=== PATIENT | female | born 1975 | race Caucasian/White ===

== ENCOUNTER 2020-06-22 06:38 | Emergency (ER) | payer BC, SELFPAY ==
[2020-06-22 06:39] VITALS: BP 158/87; PULSE 78; RESP 18; TEMP 36.6; O2SAT 98; BMI 47.3
--- NOTE | 2020-06-22 06:49 | MRI_ITS ---
STUDY: MRI CERVICAL SPINE WITHOUT CONTRAST REASON FOR EXAM: Female, 44 years old. L arm pain x 1 week TECHNIQUE: Standardized fat and water weighted pulse sequences were obtained in the sagittal and axial planes. COMPARISON: None FINDINGS: Cervical straightening. No significant scoliosis. Craniocervical and atlantoaxial articulations intact. Odontoid intact. No abnormal cord signal. Vascular flow voids maintained. No acute fracture, dislocation or osseous destruction. Normal foramen magnum and brainstem-cervical cord junction. Normal craniovertebral junction. Normal anterior atlantoaxial articulation. Normal odontoid process. C2-3: Normal endplates. Normal disc height, signal and morphology. Normal central canal and intervertebral neural foramina. C3-4: Normal endplates. Normal disc height, signal and morphology. Normal central canal and intervertebral neural foramina. C4-5: Normal endplates. Shallow disc bulge. Normal central canal and intervertebral neural foramina. C5-6: Mild endplate spondylosis. Disc herniation/osteophyte complex, asymmetric to the left with foraminal protrusion, with mild central canal narrowing. Severe left neural foraminal narrowing. Moderate left neural foraminal narrowing. C6-7: Mild endplate spondylosis. Disc herniation/osteophyte complex, asymmetric to the right, with mild central canal narrowing. Severe bilateral neural foraminal narrowing. C7-T1: Normal endplates. Normal disc height, signal and morphology. Normal central canal and intervertebral neural foramina. MRI/Spine Cervical (Routine) IMPRESSION: No abnormal cord signal Disc herniation/osteophyte complexes with central canal narrowing at C5-6 and C6-7 Severe neural foraminal narrowing at C5-6 and C6-7 Cervical straightening with osseous degenerative changes predominating at C5-6 and C6-7 Electronically Signed: Jamshid Singer DO at 9:54 EST Tel , Service support ,
--- NOTE | 2020-06-22 06:49 | EKG12_ITS ---
Test Reason : ARM PAIN Blood Pressure : / mmHG Vent. Rate : 066 BPM Atrial Rate : 066 BPM P-R Int : 148 ms QRS Dur : 102 ms QT Int : 430 ms P-R-T Axes : 052 025 035 degrees QTc Int : 450 ms Normal sinus rhythm Normal ECG Confirmed by LAURA THOMAS, MANA ([id number]), editorial assistant MARCIA JIMENEZ ([id number]) on 06/25/2020 1:40:12 PM Referred By: JHON Confirmed By:MANA SANCHEZ MD
--- NOTE | 2020-06-22 06:49 | RAD_ITS ---
HISTORY: LEFT ARM/NECK PAIN X 1 WK, PAIN GETTING WORSE ADDITIONAL HISTORY: None provided. EXAMINATION/TECHNIQUE: XR Chest 1 View AP/PA Number of images including paperwork: 1 COMPARISON: None FINDINGS: LUNGS AND PLEURA: No consolidation, mass or pleural effusion. CARDIAC SILHOUETTE: Unremarkable. MEDIASTINUM AND JANICE: Unremarkable. UPPER ABDOMEN: Unremarkable. SKELETON AND SOFT TISSUES: No acute skeletal findings. Degenerative changes. OTHER DEVICES AND HARDWARE: None. RAD/Chest 1 View (Portable) IMPRESSION: No acute cardiopulmonary abnormality. at 0745 Reported and signed by: Cinthia Linder MD Electronically Signed: Cinthia Linder MD at 7:44 EST Tel , Service support ,
--- NOTE | 2020-06-22 06:51 | ED.VISSUMM ---
- ER Visit Summary Date of Service: 06/22/20 Chief Complaint: [Severe left arm pain] History of Present Illness: The patient is a 44 F [presents to the emergency department with severe pain in her left arm since yesterday. Patient states that initially she started with pain in her neck about a week ago. She denies any trauma to her neck. The pain seems to have moved to the left shoulder and arm and radiates down to her elbow. Patient states that yesterday her fingers were numb. Patient denies any weakness to the extremity but has to keep her arm abducted at the shoulder to help relieve some of the discomfort. She states the pain is sharp and stabbing and severe. Patient has not had pain like this before. She does have history of prior back surgery to her lumbar region and has rods in her back.] Physical Examination: [HEENT-PERRLA, EOMI. Cranial nerves II through XII grossly intact. TMs clear. Mucous membranes moist. No adenopathy. No C-spine tenderness on palpation. Cardiovascular-regular rate and rhythm without murmur or ectopy Lungs-clear to auscultation, chest wall stable without crepitus or subcu emphysema Abdomen-normoactive bowel sounds, soft, nontender, no rebound or rigidity, no peritoneal signs. Extremities-intact ?4, normal range of motion, normal pulses, atraumatic. Left arm-patient has pain when she abducts the arm at the shoulder. There is no edema of the arm. She got normal pulses. 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 Deep tendon reflexes are plus 2 out of 4 bilaterally at the bicep, tricep, and brachioradialis.] Test Results: [EKG obtained on arrival shows sinus rhythm with a ventricular rate of 66 bpm with no acute segment changes] Emergency Department Course and Treatment: [Line established. Patient was medicated with Dilaudid and Zofran.] Treatment Plan: [Will be turned over to morning physician awaiting MRI results and lab results and final disposition] Disposition: [Pending] Impression: [Left arm pain/radiculopathy] This note was generated with [employer] software. It may contain incorrect words, spelling, and punctuation that were not noted in review of the chart prior to signing
[2020-06-22 07:02] LABS: Basophil% 0.4 % (0-1); Eosinophils% 1.8 % (0-5); Hematocrit 42.2 % (37-47); Hemoglobin 13.5 g/dL (12.0-15.0); Mean Corpuscular Hgb 29.2 pg (27.0-32.0); Mean Corpuscular Volume 91.3 fL (81-99); Mean Platelet Vol. 10.6 fl (6.2-12.0); Neutrophil # 5.07 X10^3/uL (2.7-7.7); Neutrophil % 65.3 % (47-70); Platelet Count 201 K/mm3 (150-450); RBC Distribution Width CV 13.9 % (11.6-14.6); RBC Distribution Width SD 46.8 fl (35.1-43.9); Red Blood Count 4.62 M/mm3 (4.2-5.4); White Blood Count 7.8 K/mm3 (4.4-11.0)
[2020-06-22 07:03] LABS: Absolute Lymphocyte Count 1.94 X10^3/uL (0.83-4.51); Absolute Neutrophil Count 5.1 X10^3/uL (2.0-7.7); Basophil# 0.03 X10^3/uL; Eosinophil# 0.14 X10^3/uL; Lymphocyte # 1.94 X10^3/ul (4.0); Monocyte# 0.54 X10^3/uL; NRBC Flagged by Analyzer 0 % (0-5)
[2020-06-22 07:23] LABS: Anion Gap 5 (5-15); BUN 15 mg/dL (7-18); BUN/Creat Ratio 17.7 RATIO (10-20); Chloride 106 mmol/L (98-107); Creatinine, Serum 0.85 mg/dL (0.55-1.02); EST Glomerular Filtration Rate 76 mL/min (>60); Est Glom Filt Rate - Afr Amer 93 mL/min (>60); Estimated Creatinine Clearance 89.43 ml/min; Glucose 95 mg/dL (74-106); Potassium 3.9 mmol/L (3.5-5.1); Sodium Level 139 mmol/L (136-145)
[2020-06-22] MEDS: Ondansetron 4 MG/2 ML Vial IV (08:02)
[2020-06-22] MEDS: HYDROmorphone 1 MG/ML Syringe IV ×2 (08:02→10:28)
[2020-06-22 08:48] VITALS: BP 115/78; PULSE 60; RESP 16; O2SAT 99
[2020-06-22 10:27] VITALS: BP 130/72; PULSE 63; RESP 16; O2SAT 95
--- NOTE | 2020-06-22 12:30 | ED.DEP ---
ED Disposition - Plan for ED Patient: Instructions: ED Radiculopathy, Cervical Prescriptions: MethylPREDNISolone DosePak [Medrol DosePak] 4 mg PO UD #1 box Oxycodone HCl/Acetaminophen [Percocet 5/325] 1 tablet PO Q6H PRN PRN 5 Days #20 tablet PRN Reason: Pain Score 1-10 Referrals: Kwabena Whitt DO [STAFF PHYSICIAN] - Dejan Son DO [STAFF PHYSICIAN] -
[2020-06-22] MEDS: dexAMETHasone 4 MG/ML Vial 8 MG IV (12:53)
== END 2020-06-22 12:54 | disposition home or self-care (01) ==
PROVIDERS: Emergency Provider Emergency Medicine
DX: M79.602 Pain in left arm (principal); M54.10 Radiculopathy, site unspecified; Z72.0 Tobacco use
CPT/HCPCS: 71045; 72141; 80048; 84484; 85025; 93005; 96374; 96375; 96376; 99283; J7030; A4216; J2405

== ENCOUNTER 2020-07-02 20:03 | Observation (INO) | payer BC, SELFPAY ==
[2020-06-24 13:48] VITALS: BMI 47.3
--- NOTE | 2020-06-26 13:09 | EKG12_ITS ---
Test Reason : PRE SURGERY Blood Pressure : / mmHG Vent. Rate : 068 BPM Atrial Rate : 068 BPM P-R Int : 164 ms QRS Dur : 116 ms QT Int : 418 ms P-R-T Axes : 071 066 040 degrees QTc Int : 444 ms Normal sinus rhythm Normal ECG When compared with ECG of 22-JUN-2020 06:43, No significant change was found Confirmed by ADELA THOMAS, SANTOSH ([id number]), technical writer and editor AUBRIE ESCOBAR ([id number]) on 06/29/2020 10:33:38 AM Referred By: Dejan Son Confirmed By:SANTOSH CHAPMAN MD
[2020-06-26 13:57] LABS: Absolute Lymphocyte Count 3.37 X10^3/uL (0.83-4.51); Absolute Neutrophil Count 9.6 X10^3/uL (2.0-7.7); Basophil# 0.06 X10^3/uL; Basophil% 0.4 % (0-1); Eosinophil# 0.08 X10^3/uL; Eosinophils% 0.6 % (0-5); Hematocrit 45.1 % (37-47); Hemoglobin 14.1 g/dL (12.0-15.0); Lymphocyte # 3.37 X10^3/ul (4.0); Lymphocyte % 24.4 % (19-41); Mean Corp Hgb Conc 31.3 g/dL (32-36); Mean Corpuscular Hgb 28.3 pg (27.0-32.0); Mean Corpuscular Volume 90.4 fL (81-99); Mean Platelet Vol. 10.5 fl (6.2-12.0); Monocyte% 4.3 % (0-10); NRBC Flagged by Analyzer 0 % (0-5); Neutrophil # 9.61 X10^3/uL (2.7-7.7); Neutrophil % 69.6 % (47-70); Platelet Count 247 K/mm3 (150-450); RBC Distribution Width CV 13.7 % (11.6-14.6); RBC Distribution Width SD 45.7 fl (35.1-43.9); Red Blood Count 4.99 M/mm3 (4.2-5.4); White Blood Count 13.8 K/mm3 (4.4-11.0)
[2020-06-26 14:11] LABS: Anion Gap 5 (5-15); BUN 19 mg/dL (7-18); BUN/Creat Ratio 19.7 RATIO (10-20); Calcium,Total 9.2 mg/dL (8.5-10.1); Chloride 102 mmol/L (98-107); Creatinine, Serum 0.97 mg/dL (0.55-1.02); EST Glomerular Filtration Rate 66 mL/min (>60); Est Glom Filt Rate - Afr Amer 80 mL/min (>60); Glucose 123 mg/dL (74-106); Potassium 3.3 mmol/L (3.5-5.1); Sodium Level 137 mmol/L (136-145)
[2020-06-26 14:42] LABS: HIV - WCH Non-Reactive (Nonreactive)
[2020-06-27 07:07] LABS: HEPATITIS B SURFACE AG Negative (Negative); Hepatitis A AB, Total Negative (Negative); Hepatitis A IgM Antibody Negative (Negative); Hepatitis B Core AB IgM Negative (Negative); Hepatitis B Core Ab Total Negative (Negative); Hepatitis C Ab <0.1 s/co ratio (0.0-0.9)
[2020-06-27 08:59] LABS: Hep B Surface Antibodies Non Reactive (.)
[2020-07-02] VITALS (11 sets, daily range): BP systolic 123–156; BP diastolic 57–89; PULSE 71–90; RESP 14–18; TEMP 36.3–36.8; O2SAT 94–100; BMI 50.5; BMI 47.3
--- NOTE | 2020-07-02 09:19 | HP_ITS ---
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 Dejan Son DO) household members: spouse, children, other details: brother housing: house Smoking Status: Current every day smoker tobacco type: cigarettes Tobacco: How many years used: 20 alcohol intake: never what type of physical activity do you participate in: none do you feel safe at home: Yes HPI Neck pain: Details: Parts of this documentation were recorded by a scribe, this documentation accurately reflects the service provided and the decisions made by me, Dr. Dejan Son DO 06/24/20 1345. KAMLA TIJERINA is a 44 year old F here today to establish as a new patient. Patient went to the [facility] ER on 06/22/2020. Patient states over the past week an a half d/t cervical pain. Pain has been radiating to her left arm. Patient had an EKG, chest x-ray, and a cervical spine MRI. Denies any previous accident or injury. Cervical pain is only on her left side. Patient did not see a chiropractor for her pain d/t h/o back surgery. Patient has been trying Aleve, ibuprofen 600mg, icey-hot, heating pad and elevating her left arm with multiple pillows that she has in the office with her today. States she cannot lower her left arm d/t extreme pain. Patient reports numbness and stiffness with her left arm and it effects her digits. Patient is currently taking Percocet and a steroid dose ricardo from the ER. Kamla dent a most pleasant lady whose chief complaint is that of pain in her neck that radiates down her left arm. This first started about 2 weeks ago basically with neck pain within 2 days it started going down her left arm. Is been severe ever since. She has never had anything like this in the past. She also gets posterior cervical cephalgia. It is never affected the right arm. Her pain was so severe she had to end up in the emergency room. They sent her home on Percocet 5 mg. On examination she has very positive Spurling's to the left side. She has weakness of the extensors of the wrist on the left as compared to the right. Her bit brachioradialis reflex on the left is completely absent it is 2+ on the right. She has no long tract signs. Clonus is absent Babinski's are downgoing. She has good strength of all the other major muscle groups of both upper extremities. I reviewed her plain x-rays and her MRI scan. She has an extruded fragment at C5-6 into the foramen on the left side. This is giving her the vast majority of her pain. She also has a protrusion out to the right side at 6 7 with some foraminal stenosis at both foramina however the main pain No Doubt is coming from above. She will need an anterior cervical fusion at C5-6 and C6-7. With the severe pain that she is having now and the neurological deficit she is not a candidate for physical therapy. Anti-inflammatories were of no use whatsoever. We will try to schedule her as soon as is reasonably possible. ROS Const Denies system reviewed and no additional complaints, except as docu, Denies chills, Denies fatigue, Denies fever(s), Denies frequent falls, Denies headache(s) ENT Denies headache(s) Card Denies system reviewed and no additional complaints, except as docu, Denies chest pain, Denies shortness of breath Resp Denies system reviewed and no additional complaints, except as docu, Denies chest congestion, Denies cough, Denies shortness of breath GI Denies system reviewed and no additional complaints, except as docu, Denies abdominal pain, Denies constipation, Denies incontinent of stools, Denies loose stools, Denies nausea, Denies vomiting Denies system reviewed and no additional complaints, except as docu, Denies urinary incontinence Musc Reports system reviewed and no additional complaints, except as docu, Reports joint pain, Reports numbness, Reports stiffness, Denies tingling Skin/Breast Denies system reviewed and no additional complaints, except as docu, Denies dry skin, Denies redness, Denies lesions, Denies new lesions, Denies non-healing lesions, Denies itching, Denies rash, Denies skin ulcer, Denies sores, Denies wounds Neuro No frequent falls, No headache(s), Yes numbness, No tingling Endo Denies fatigue Assessment & Plan 1. Neck pain M54.2 Orders Orders: Cerv Spine 2 or 3 Views Today 2. HNP (herniated nucleus pulposus), cervical M50.20 Coding Level of Care Code Off vis,new,level 3 Diagnoses Neck pain M54.2 HNP (herniated nucleus pulposus), cervical M50.20 Time Spent (min) 30
[2020-07-02] MEDS: Lactated Ringers 1,000 ML 100 ML IV ×3 (10:34→23:57)
[2020-07-02] MEDS: Acetaminophen 500 MG Tablet 1000 MG PO (10:35)
[2020-07-02] MEDS: dexAMETHasone 10 MG/ML Vial 8 MG IV (10:49)
[2020-07-02 10:51] LABS: Bedside Glucose 88 mg/dL (70-110)
--- NOTE | 2020-07-02 11:30 | RAD_ITS ---
STUDY: X-RAY - CERVICAL SPINE REASON FOR EXAM: Female, 44 years old. Anterior cervical discectomy at C5/C6 and C6/C7. TECHNIQUE: 2 intraoperative lateral views of the cervical spine were obtained. COMPARISON: 06/24/20 FINDINGS: Evaluation is limited as only a lateral view is provided and only up to C5/C6 is visualized. Alignment is grossly normal. There is no fracture identified. There are mild degenerative changes at C5/C6. There is an endotracheal tube in place. RAD/Spine 1 View Any Level IMPRESSION: As above. Electronically Signed: Ryan Mascorro MD at 13:46 EST Tel , Service support ,
--- NOTE | 2020-07-02 11:30 | DISC_PTH ---
PATIENT: HESHAM TIJERINA LOC: MS3 U#:[id number] AGE/SX: 44/F [place]OM: [facility] [place]/[address]: Dr. Rigo Merrill, : 1975 BED: 1 DIS: 07/03/2020 SPEC #: [id number] RECD: 07/03/20 07:41 STATUS: JOSE LUIS REQ #: [id number] JOSE: 07/02/20 11:[address]: Dejan Son DEPT: SURGICAL PATHOLOGY RECD BY: Yumiko Townsend ENTERED: 07/03/20 08:23 SP TYPE: DISC OTHR DR: MD Dr. Dejan Mata, DO Dr. Rigo Merrill, DO No Primary Care Phys Tissues: A - Intervertebral disc, NOS B - Intervertebral disc, NOS Procedures: Surgery Specimen Level III Comments: @ Ordering doctor for SUIII edited from to @ by PARIS at 07/03/20 1504 @ Submitting doctor edited from to @ by RGOOD at 07/03/20 1504 HEADER OPERATION: ERAS, anterior cervical fusion C5-C6 (left), C6-C7 PRE-OP DIAGNOSIS: Neck pain, herniated nucleus polposus, cervical TISSUE SUBMITTED: A - Disc C5-C6, B - Disc C6-C7 MICROSCOPIC DIAGNOSIS A. Disc C5-C6: Fragments of fibrocartilaginous tissue with degenerative and reactive changes and minute fragments of bone. B. Disc C6-C7: Fragments of fibrocartilaginous tissue with degenerative and reactive changes and minute fragments of bone. NAVID:[email or web address] 07/06/2020 MICROSCOPIC DESCRIPTION Slides are reviewed. GROSS DESCRIPTION A - Received in fixative is one container labeled with the patient's name and designated disc C5-C6. The specimen consists of multiple irregular fragments of sykes, indurated tissue that in aggregate measure 5 x 3 x 0.3 cm. The entire specimen is submitted in two cassettes. B - Received in fixative is one container labeled with the patient's name and designated disc C6-C7. The specimen consists of multiple irregular fragments of sykes, indurated tissue that in aggregate measure 3 x 2.5 x 0.3 cm. The entire specimen is submitted in one cassette. / Ricardo 07/03/20 TC:5 CPT: 96500 x2
[2020-07-02] MEDS: Thrombin 5,000 IU Kit (PSA) 5,000 IU Vial 5000 IU (13:34)
[2020-07-02] MEDS: Heparin 10,000 UNITS/10 ML Vial 10000 UNITS (13:34)
--- NOTE | 2020-07-02 14:10 | RAD_ITS ---
STUDY: X-RAY - LUMBAR SPINE REASON FOR EXAM: Female, 44 years old. ANTERIOR CERVICAL FUSION CONFIRMATION IMAGE FOR C5/6 TECHNIQUE: 1 view(s) of the lumbar spine were obtained. COMPARISON: None FINDINGS: The localization instrument is seen along the anterior aspect of the C5-C6 disc space level. RAD/Spine 1 View Any Level IMPRESSION: The localization instrument is seen along the anterior aspect of the C5-C6 disc space level. Electronically Signed: Jeff Crandall MD at 14:25 EST , Service support ,
--- NOTE | 2020-07-02 16:40 | RAD_ITS ---
STUDY: X-RAY - cervical REASON FOR EXAM: Female, 44 years old. image #3 IN OR TECHNIQUE: Lateral view(s) of the cervical spine were obtained. COMPARISON: None FINDINGS: Single intraoperative lateral view demonstrates postsurgical changes status post anterior cervical fusion at C5-6 and C6-7 with indwelling disc spacers.. Indwelling endotracheal and nasogastric tubes are seen. RAD/Spine 1 View Any Level IMPRESSION: Intraoperative anterior cervical fusion at C5-6 and C6-7 Electronically Signed: Kwabena Henning MD at 23:00 EST , Service support ,
--- NOTE | 2020-07-02 17:15 | PCM.OPRPT ---
Report of Operation Description of Surgical Findings:: Preoperative diagnosis: Disc degeneration C6-7 and herniated disc with hard disc disease C5-6 on the left Postoperative diagnosis: Same The procedure: #1 cervical fusion C6-7 #2 insertion of cage C6-7 #3 application of anterior spine plate between C5 and C7 #4 anterior cervical fusion C5-6 #5 version of cage at C5-6 and #6 bone marrow aspirate right iliac crest Surgeon: Dr. Son election assistant:Candido GAMING Anesthesia: General endotracheal anesthesia administered by [facility] Blood loss: Less than 30 cc Bone marrow aspirate: 60 cc Drains: 1/4 inch [place] Complications: None Patient was taken to the OR she was placed in the supine position on the operating table. She was then placed under general endotracheal anesthesia. The neuro monitoring community service technician then placed all the needle leads on the patient and a Figueredo catheter was inserted. Took a preoperative x-ray a marker in place and marked the skin point where incision was to begin. Marked with a very small laceration using the end of the needle in the midline of the neck. The neck and the right crest area was then prepped and draped in standard fashion. I then started the incision at the predetermined point in the middle and curving to the edge of the right sternocleidomastoid muscle in line with longer's lines. Subcutaneous tissues were incised length of skin incision using cautery. Used scissors to elevate that is undermined subcutaneous tissue above and below the incision. Retaining retractors were then put in place and I split the platysma near its medial border tissue scissors. Then exploited the fascial planes first exploiting the superficial cervical fascia and opening the pretracheal fascia strap muscles were retracted to the left along with the trachea and esophagus and the carotid sheath was retracted to the right. Fashion I was able to identify the precervical fascia and found 2 disks. I put a needle marker in place in the top of the 2 0 to x-ray I then did the x-ray and found that this was C5-6 this was marked with cautery but cut a hole in the center of the disc but then moved down 1 disc to C6-7 2 at first. Cauterized the longus coli muscles on either side along their medial border elevated them gently off the disc space on either side using a small omalley elevator. The leather belt loop cutter retractors were then put in place under the coli muscles on either side and also up-and-down to give me good access to C6-7. I then used the cautery unit to cauterize the anterior longitudinal ligament and periosteum above and below the disc space. Using a 15 blade I remove the anterior annulus and used pituitary rongeurs to remove more nucleus from within the disc space distractor on 1 side and then used curettes to remove the cartilage off both endplates. On the opposite side also. Following this I used a mirtha bur to bur on the right side till it was a thin shell of bone using curettes I then removed the thin shell off of the base of the see VII nerve root. Note that she had no symptoms of it however because of the foraminal stenosis it was causing it could become a problem in the future even with a fusion. I then removed all the remaining cartilage off both endplates I used a bur also to bur the anterior osteophytes and make them even. Thorough irrigation was carried out every 10 to 15 minutes in the course of the case took my measurements for the cage in a trial we found that a large 8 mm high titanium cage would be appropriate for this level. I then used the rasp and broaches to broach the space and roughen up both endplates. Give me good bleeding bone. Note that prior to this we used a Jamshidi needle to go into the right iliac crest we tamped into place and we were able to obtain 60 cc of bone marrow aspirate. This was handed off to the community service technician with the centrifuge who spun it down to bring the stem cells from the red cells the white cells and the plasma and concentrating the stem cells about 8 or 10 times. Then given back to me I then filled the 8 mm cage with spongy DBM and soaked it in the patient's own stem cells. This was then tamped into place and countersunk approximately 2 mm we then removed our retractors and moved up using Cloward retractors we identified C5-6 and then cauterized the coli muscles on either side and again the leather belt loop cutter retractors were put in their place give me good access at C5-6 I remove the anterior annulus with a 15 blade and removed more nucleus from within the disc with pituitary rongeurs we then used a bur to remove the anterior osteophytes. I then removed more nucleus from the disc base with a pituitary rongeurs and curettes all the way back to the back of the intervertebral space. Note that she had foraminal stenosis on the left and using the mirtha bur technique a use earlier on the other level by first burring followed by the instillation cold saline this was done repeatedly until the uncinate process causing the stenosis was a very thin shell of bone this was then removed off of the base of the nerve root using small angled curettes. That I also found a significant free fragment that was pressing on the nerve root which of course was giving her her severe pain in her left arm. This was easily removed when I was done there was a open foramen with no pressure on it whatsoever thorough irrigation was carried out repeatedly. I we then took her measurements for a second cage we found that we needed an 8 mm cage. Again it was a large of the 2 sizes and again we filled it with's spongy DBM and soaked it in the patient's own stem cells. Prior to put it in I used the broach to broach the space and have good bleeding bone on both endplates. This was then tamped into place and countersunk a couple of millimeters. Ended up using a 45 mm 6-hole plate we landed up with the 2 holes into C6 to into C5 and 2 into C7 once lined up with a use the awl to punch each of the individual holes and entered with 14 mm screws at all 6 points. Was seen on x-ray was found to be very satisfactory with good position of the cages the plate and screws. An amniotic membrane was then placed over the plate to prevent adhesions to the esophagus in the future. 1/4 inch Edith was then left in place. We closed the platysma running fashion with 5-0 Vicryl followed by closure of subcutaneous tissues with 5-0 Vicryl in interrupted fashion. This approximated the skin there was no need for outside stitches. Sterile dressings were applied a safety pin was placed through the drain to prevent a suction into the wound. She was then recovered in the OR to her hospital bed and taken to recovery in satisfactory condition this interoperative summary on Kamla Harris.
[2020-07-02] MEDS: dexAMETHasone 4 MG/ML Vial 2 MG IV ×2 (18:05→23:47)
--- NOTE | 2020-07-02 19:26 | PCM.CONS.GEN ---
Problem List (1) S/P cervical spinal fusion Status: Acute (2) Elevated BP without diagnosis of hypertension Status: Acute (3) Chronic back pain Status: Chronic Qualifiers: Back pain location: back pain in unspecified location Back pain laterality: unspecified Qualified Code(s): M54.9 - Dorsalgia, unspecified; G89.29 - Other chronic pain (4) Cervical neck pain with evidence of disc disease Status: Chronic (5) Cervical radiculopathy Status: Chronic (6) Morbid obesity Status: Chronic (7) Tobacco use Status: Chronic (8) NILES (obstructive sleep apnea) Status: Suspected Reason for Consult Date of Consultation: 07/02/20 Reason for Consultation: Medical management History of Present Illness: The patient is a 44 y/o F w/ PMHx: Tobacco use, Morbid Obesity, Suspected NILES per herself noting her notes she gasps in her sleep, Chronic back pain s/p prior lumbar surgery interventions with ongoing cervical neck pain with radiculopathy who presents to the [facility] on 07/02/20 for planned cervical fusion C6-7, insertion of cage C6-7 with application of anterior spine plate between C5 and C7 as well as anterior cervical fusion of C5-6 and version of cage at C5-6 as well as bone marrow aspirate to the right iliac crest with no specific perioperative complications. Neurosurgery has requested medical management consultation. Upon evaluation of patient she is returned to medical surgical floor and currently rating pain in her neck as dull aching and sharp at the same time with no radiculopathy with full sensation of bilateral upper extremities at 3 out of 10. 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 Allergies hydrocodone [From Vicodin] Adverse Reaction (Verified 07/02/20 10:20) Nausea Home Medications: Ambulatory Orders Medication Instructions Recorded MethylPREDNISolone DosePak [Medrol 4 mg PO UD #1 box 06/22/20 DosePak] Alprazolam [Xanax] 0.5 mg PO DAILY PRN PRN 06/26/20 Percocet 5-325 mg Tablet 5 - 325 mg PO Q4H PRN PRN 07/02/20 Surgical History: Surgical History (Last Updated 06/24/20 @ 13:54 by Zora Orellana) H/O lumbosacral spine surgery Z98.890 04/20/2007, 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 Tobacco Use: Cigarettes Alcohol: Occasional Drugs: None - *Family History Maternal History Items: Pulmonary Disease - Mother with a history of chronic COPD with underlying tobacco use history with unfortunately Covid illness recently. Paternal History Items: Heart Disease, Hypertension Review of Systems Constitutional: Reports: Malaise, Weakness, Fatigue. Denies: Anorexia, Chills, Fever, Weight Change HEENT: Reports: - - Cervical neck discomfort status post recent fusion.. Denies: Head Aches, Sinus Congestion, Sinus Drainage Cardiovascular: Denies: Chest Pain, Palpitations Respiratory: Denies: Cough, Shortness of breath at rest, Sputum production Gastrointestinal: Denies: Abdominal Pain, Nausea, Vomiting Genitourinary: Denies: Dysuria Musculoskeletal: Reports: Back Pain, Neck Pain. Denies: Joint Pain, Joint Tenderness Skin: Denies: Rash, Wounds Neurological: Reports: - - Patient with previously bilateral upper extremity paresthesias with radiculopathy.. Denies: Focal weakness, Numbness, Tingling Psychiatric: Denies: Anxiety, Depression, Homicidal Ideations, Suicidal Ideations Hematologic/ Lymphatic: Denies: Easy Bruising, Easy Bleeding Subjective: Patient seated upright in the medical surgical bed, cervical soft collar in place, rating pain 3 out of 10, full sensation of bilateral upper extremities. Objective: Physical Examination: General: awake, alert, oriented x 3 and cooperative, seated upright in the medical surgical bed, no acute distress, rating pain 3 of 10. Skin: normal color, turgor, no icterus, cyanosis except neck with cervical collar and dressings in place, no obvious evidence of drainage. HEENT: AT/NC, EOMI, PERRLA, dry MM, cervical collar in place therefore deferred assessment of carotid region or JVD. Lungs: Diminished breath sounds, greater bases, moderate effort, no rales, ronchi or wheezing. Heart: Regular rate and rhythm; no gallop, rub audible. Abdomen: soft, morbidly obese, NTTP, no obvious evidence of distention, distant normal BS, no HSM. Extremities: no cyanosis or clubbing, noted bilateral hand and bilateral ankle mild edema. Neurological: patient awake, alert, oriented as noted; cognitive function improving, near baseline intact; pupils equally reactive to light and accomodation; cranial nerves II-XII grossly normal, moving all 4 extremities although limited given recent cervical spinal fusion, sensation intact, strength accordingly severely global decrease. Psychiatric: affect appears mildly fatigued otherwise normal, no acute evidence of depressive or anxiety feelings. - Physical Exam Vitals/I&O's: Vital Signs Temp Pulse Resp BP Pulse Ox 97.4 F L 82 18 139/71 H 97 07/02/20 19:19 07/02/20 19:19 07/02/20 19:19 07/02/20 19:19 07/02/20 19:19 Oxygen Flow Rate (L/min) 6 Oxygen Delivery Method Venturi Mask Weight: 352 lb 4.779 oz Body Mass Index (BMI) 50.5 Intake and Output for Last 24 Hours 06/30/20 07/01/20 07/02/20 23:59 23:59 23:59 Intake Total 1215 / 1215 Output Total 775 / 775 Balance 440 / 440 Microbiology Past 72 Hours 07/01/20 12:15 Interface Orders SARS-CoV-2 Antigen (Rapid) - Final Laboratory Results 07/02/20 10:08: POC Glucose 88 Current Medications Dexamethasone Sodium Phosphate (Dexamethasone 4 Mg/Ml Vial) 4 mg IV Q6H RYAN; Taper Stop: 07/03/20 17:59 Last Admin: 07/02/20 18:05 Dose: 4 mg Documented by: Enteral Nutritional Formula (Ensure Surgery 237 Ml Liquid) 237 ml PO TIDCM RYAN Famotidine (Famotidine 20 Mg Tablet) 20 mg PO BID RYAN Lactated Ringer's () 1,000 mls @ 100 mls/hr IV .Q10H RYAN Last Infusion: 07/02/20 18:20 Dose: Infused Documented by: Lactated Ringer's () 1,000 mls @ 100 mls/hr IV .Q10H [facility] Last Admin: 07/02/20 17:10 Dose: 100 mls/hr Documented by: Cefazolin Sodium () 1 gm in 50 mls @ 100 mls/hr IV Q8H [facility] Stop: 07/03/20 04:59 Morphine Sulfate (Morphine 4 Mg/Ml Syringe) 2 - 4 mg IV Q2H PRN PRN PRN Reason: Pain Score 6-10 Morphine Sulfate (Morphine 2 Mg/Ml Syringe) 2 - 4 mg IV Q2H PRN PRN PRN Reason: Pain Score 6-10 Ondansetron HCl (Ondansetron 4 Mg/2 Ml Vial) 4 mg IV Q8H PRN PRN PRN Reason: NAUSEA Senna/Docusate Sodium (Senna/Docusate Sodium 1 Tablet) 2 tablet PO BID [facility] Sodium Chloride (0.9% Nacl Peripheral Flush Adult/Peds) 5 - 15 ml IV UD PRN PRN Reason: SALINE FLUSH Tramadol HCl (Tramadol 50 Mg Tablet) 50 - 100 mg PO Q6H PRN PRN PRN Reason: Pain Score 4-5 Zolpidem Tartrate (Zolpidem Tartrate 5 Mg Tablet) 5 mg PO QHS PRN PRN PRN Reason: INSOMNIA Assessment/Plan All Active Problems (Last Updated 06/24/20 @ 13:54 by Zora Orellana) S/P cervical spinal fusion (Acute) Elevated BP without diagnosis of hypertension (Acute) The patient is a 44 y/o F w/ PMHx: Tobacco use, Morbid Obesity, Suspected NILES per herself noting her notes she gasps in her sleep, Chronic back pain s/p prior lumbar surgery interventions with ongoing cervical neck pain with radiculopathy who presents to the [facility] on 07/02/20 for planned cervical fusion C6-7. 1. Intractable neck pain with generative disc disease and radiculopathy: Failed conservative therapies and treatments, admitted per Dr. Son for planned cervical fusion, post-operative pain management, bowel regimen, DVT Prophylaxis, PT/OT/CM per Orthopedic surgery discretion. 2. Elevated BP without hypertensive diagnosis: Possibly secondary to pain, will continue to closely monitor and if appropriate add oral regimen, and in interim will have IV as needed hydralazine. 3. Morbid Obesity: Weight loss and lifestyle changes encouraged, nutrition consulted. 4. Tobacco Abuse: Encouraged cessation, inpatient consultation per RT, NR if desired. 5. Suspected NILES: Patient notes that she does gasp in her sleep for air per report by her spouse, will maintain on continuous pulse oximetry and if appropriate patient should be referred upon discharge for sleep apnea assessment. 6. DVT prophylaxis: SCDs, chemoprophylaxis per discretion of surgeon given recent intervention. Office Visits / Consults: [id number] IP Consult L3
[2020-07-02] MEDS: traMADol 50 MG Tablet PO (20:04)
[2020-07-02] MEDS: Cefazolin 1 GM/50 ML BAG IV (20:06)
[2020-07-02] MEDS: Famotidine 20 MG Tablet PO (22:12)
[2020-07-02] MEDS: Senna/Docusate Sodium 1 Tablet 2 TABLET PO (22:12)
[2020-07-02] MEDS: 0.9% NaCl Peripheral Flush Adult/Peds IV (23:47)
[2020-07-02] MEDS: Morphine 2 MG/ML Syringe IV (23:48)
[2020-07-03] VITALS (8 sets, daily range): BP systolic 112–134; BP diastolic 56–64; PULSE 61–67; RESP 16–18; TEMP 36.4–37.2; O2SAT 93–100
[2020-07-03] MEDS: traMADol 50 MG Tablet PO ×3 (02:08→16:57)
[2020-07-03] MEDS: Cefazolin 1 GM/50 ML BAG IV (04:49)
[2020-07-03] MEDS: dexAMETHasone 4 MG/ML Vial 2 MG IV ×2 (04:57→11:46)
[2020-07-03] MEDS: Senna/Docusate Sodium 1 Tablet 2 TABLET PO (07:57)
[2020-07-03] MEDS: Ensure Surgery 237 ML LIQUID PO ×2 (07:57→11:46)
[2020-07-03] MEDS: Famotidine 20 MG Tablet PO (07:57)
[2020-07-03] MEDS: Morphine 2 MG/ML Syringe IV (10:33)
[2020-07-03] MEDS: 0.9% NaCl Peripheral Flush Adult/Peds IV (10:34)
--- NOTE | 2020-07-03 12:48 | PN_ITS ---
Patient Problems: Active and Suspected Problems (Last Updated 06/24/20 @ 13:54 by Zora Orellana) S/P cervical spinal fusion (Acute) NILES (obstructive sleep apnea) (Suspected) Elevated BP without diagnosis of hypertension (Acute) Subjective: Patient was seen and examined today, she has no complaints of any shortness of breath, chest discomfort, or headache at this time. Patient's blood pressure is well controlled. - Physical Exam Vitals/I&O's: Vital Signs Temp Pulse Resp BP Pulse Ox 97.5 F L 61 18 112/59 L 95 07/03/20 08:34 07/03/20 08:38 07/03/20 08:34 07/03/20 08:34 07/03/20 08:38 Oxygen Flow Rate (L/min) 2 Oxygen Delivery Method Room Air Weight: 149.685 kg Body Mass Index (BMI) 47.3 Intake and Output for Last 24 Hours 07/01/20 07/02/20 07/03/20 23:59 23:59 23:59 Intake Total 1943.33 / 2543.33 2450 / 2450 Output Total 775 / 2625 4850 / 4850 Balance 1168.33 / -81.67 -2400 / -2400 General: Alert, Oriented x3, Cooperative, No apparent distress, Well developed, Well nourished HEENT: Atraumatic, PERRLA, EOMI, Normocephalic Oral: Moist Mucosa Neck: - - Cervical collar in place Lungs: Clear to auscultation, Normal air movement, No rhonchi, No wheeze, No rales Cardiovascular: Regular rate, Regular Rhythm, Normal S1, Normal S2, No murmurs, PMI Normal, No rub noted, No Gallop Abdomen: Bowel Sounds Present, Soft, Non Tender, Non-Distended, Obese Extremities: No clubbing, No cyanosis, No edema, Capillary Refill Less than 3 Seconds Skin: No rashes, No breakdown Neurological: Cranial nerves II-XII grossly intact, Neuro grossly intact, Sensory exam intact to light touch and pain Psych/Mental Status: Normal Affect, Appropriate, Alert and oriented to time, place, person, mood and affect Microbiology Past 72 Hours 07/01/20 12:15 Interface Orders SARS-CoV-2 Antigen (Rapid) - Final Current Medications Dexamethasone Sodium Phosphate (Dexamethasone 4 Mg/Ml Vial) 2 mg IV Q6H [facility]; Ta per Stop: 07/03/20 17:59 Last Admin: 07/03/20 11:46 Dose: 2 mg Documented by: Enteral Nutritional Formula (Ensure Surgery 237 Ml Liquid) 237 ml PO TIDCM [facility] Last Admin: 07/03/20 11:46 Dose: 237 ml Documented by: Famotidine (Famotidine 20 Mg Tablet) 20 mg PO BID [facility] Last Admin: 07/03/20 07:57 Dose: 20 mg Documented by: Lactated Ringer's () 1,000 mls @ 100 mls/hr IV .Q10H [facility] Last Infusion: 07/03/20 10:21 Dose: Infused Documented by: Sodium Chloride () 250 mls @ 15 mls/hr IV .[id number] PRN PRN Reason: Saline Flush Sodium Chloride () 250 mls @ 15 mls/hr IV .[id number] PRN PRN Reason: Additional IVPB Infusion Morphine Sulfate (Morphine 4 Mg/Ml Syringe) 2 - 4 mg IV Q2H PRN PRN PRN Reason: Pain Score 6-10 Morphine Sulfate (Morphine 2 Mg/Ml Syringe) 2 - 4 mg IV Q2H PRN PRN PRN Reason: Pain Score 6-10 Last Admin: 07/03/20 10:33 Dose: 2 mg Documented by: Nicotine (Nicotine 21 Mg Patch) 21 mg TD DAILY [facility] Last Admin: 07/03/20 07:57 Dose: 21 mg Documented by: Ondansetron HCl (Ondansetron 4 Mg/2 Ml Vial) 4 mg IV Q8H PRN PRN PRN Reason: NAUSEA Senna/Docusate Sodium (Senna/Docusate Sodium 1 Tablet) 2 tablet PO BID [facility] Last Admin: 07/03/20 07:57 Dose: 2 tablet Documented by: Sodium Chloride (0.9% Nacl Peripheral Flush Adult/Peds) 5 - 15 ml IV UD PRN PRN Reason: SALINE FLUSH Last Admin: 07/03/20 10:34 Dose: 10 ml Documented by: Sodium Chloride (0.9% Saline Lock 10 Ml Syringe) 10 - 40 ml IV UD PRN PRN Reason: SALINE FLUSH Tramadol HCl (Tramadol 50 Mg Tablet) 50 - 100 mg PO Q6H PRN PRN PRN Reason: Pain Score 4-5 Last Admin: 07/03/20 08:02 Dose: 100 mg Documented by: Zolpidem Tartrate (Zolpidem Tartrate 5 Mg Tablet) 5 mg PO QHS PRN PRN PRN Reason: INSOMNIA Medical Necessity - Tobacco Use Smoking Status: Current every day smoker Tobacco Use: Cigarettes Assessment/Plan All Active Problems (Last Updated 06/24/20 @ 13:54 by Zora Orellana) S/P cervical spinal fusion (Acute) Elevated BP without diagnosis of hypertension (Acute) #1 degenerative disc disease of the cervical spine-status post cervical fusion and insertion of cage and application of spinal plate, with bone marrow aspirate right iliac crest-patient has no complaints of severe neck pain today, await physical exam by orthopedic surgery #2 morbid obesity #3 possible obstructive sleep apnea-patient has been advised to follow-up with her PCP regarding sleep testing, I recommended that she establish a PCP, her currently has 1 and I advised her to see if she could get into see her 's physician. She has requested materials concerning sleep apnea and she will be given these materials by nursing. Inpatient E&M: 71948 Subs Hosp L2
--- NOTE | 2020-07-03 13:23 | CASEMGMT ---
RN CM in to discuss dc planning with patient. Pt denies any needs at this time.
--- NOTE | 2020-07-03 14:44 | DCINST_ITS ---
Discharge Activity: May Not Drive May shower in (days): 4 May resume sexual activity in: 10-14 days Weight Bearing Status: Full weight bearing Call your doctor if your incision/area has: Continuous Slow Oozing, Increased Pain/ Swelling Call your doctor if you observe: Fever of 101 or Higher, Shortness of breath, Fainting spells, Calf discomfort Remove Dressing in (days):: 4 Cleanse incision/area with: Soap & Water Allergies/Adverse Reactions: Allergies hydrocodone [From Vicodin] Adverse Reaction (Verified 07/02/20 10:20) Nausea Medications to take at Discharge Alprazolam [Xanax] 0.5 mg PO DAILY PRN PRN 06/26/20 Nicotine [Nicoderm Cq] 21 mg TD DAILY patch 07/03/20 Primary Care Physician: Care Physician,No Primary [Primary Care Provider] - Test Results: Test results from this visit will be discussed in further detail at your follow- up appointment, if applicable. Please Follow Up With: Dr Son When: 10 to 14 days Proposed Discharge Date: 07/03/20
== END 2020-07-03 17:13 | disposition home or self-care (01) ==
LOC: SDC 20:11 → MS3 20:11
PROVIDERS: Anesthesiology; Admitting Provider Orthopaedic Surgery; Referring Provider Orthopaedic Surgery; Visit Provider Internal Medicine
PROC: (CPT 22551; principal; 2020-07-02 11:00)
DX: M50.222 Other cervical disc displacement at C5-C6 level (principal); Z20.828 Contact with and (suspected) exposure to other viral communicable diseases; M50.323 Other cervical disc degeneration at C6-C7 level; F17.210 Nicotine dependence, cigarettes, uncomplicated; F41.9 Anxiety disorder, unspecified; F32.9 Major depressive disorder, single episode, unspecified; G89.29 Other chronic pain; R03.0 Elevated blood-pressure reading, without diagnosis of hypertension; E66.01 Morbid (severe) obesity due to excess calories; G47.33 Obstructive sleep apnea (adult) (pediatric); Z68.42 Body mass index [BMI] 45.0-49.9, adult; Z79.899 Other long term (current) drug therapy
CPT/HCPCS: 20939; 22551; 22552; 22845; 22853; 36415; 72020; 80048; 82962; 83735; 85025; 86703; 86704; 86705; 86706; 86708; 86709; 86803; 87081; 87340; 87426; 88304; 93005; 99406; C1713; C9803; J7120; A4216; J2405

== ENCOUNTER → 2020-07-24 20:02 | Outpatient (CLI) | payer BC, SELFPAY ==
[2020-07-15 10:34] VITALS: BMI 47.3
== END ==
PROVIDERS: Referring Provider Nurse Practitioner Acute Care; Visit Provider Nurse Practitioner Acute Care
DX: G47.33 Obstructive sleep apnea (adult) (pediatric) (principal)
CPT/HCPCS: 95811

== ENCOUNTER → 2020-08-06 13:00 | Outpatient (CLI) | payer BC, SELFPAY ==
[2020-07-15 10:34] VITALS: BMI 47.3
== END ==
PROVIDERS: Visit Provider Nurse Practitioner Acute Care
DX: Z46.89 Encounter for fitting and adjustment of other specified devices (principal)

== ENCOUNTER 2023-06-09 06:23 | Emergency (ER) | payer BC, SELFPAY ==
[2023-06-09 06:23] VITALS: BP 162/89; PULSE 65; RESP 19; TEMP 36.3; O2SAT 98; BMI 55.5
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
[2023-06-09] MEDS: Ketorolac 60 MG/2 ML Vial IM (07:32)
[2023-06-09] MEDS: Metaxalone 800 MG Tablet PO (07:37)
--- NOTE | 2023-06-09 07:45 | RAD_ITS ---
STUDY: X-RAY - CERVICAL SPINE REASON FOR EXAM: Female, 47 years old. Pain and prior c-fusion TECHNIQUE: 3 view(s) of the cervical spine were obtained. COMPARISON: Comparison is made with prior study January 22, 2021. FINDINGS: Normal anterior atlantoaxial articulation. Normal odontoid process. There is straightening of the normal cervical lordosis. Normal vertebral bodies and endplates. Patient is status post anterior fusion and prosthetic disc placement at the C5-C6 and C6-C7 levels. Normal visualized intervertebral neuroforamina. Calcification of the left carotid bifurcation. RAD/Cerv Spine 2 or 3 Views IMPRESSION: Loss of the normal cervical lordosis. Status post anterior fusion and disc space replacement at the C5-C6 and C6-C7 levels. Electronically Signed: Jeff Crandall MD at 8:06 EST ,
--- OUTSIDE RECORDS SUMMARY | 2023-06-09 07:53 | XMS RPT_ITS | CCD ---
Author Name Unknown Address [address] [place] [address] Organization [facility] Care Team Providers Care Digital Tech Name Role Phone BASIA LOBO Unavailable Unavailable TERESA ROJAS Unavailable Unavailable SNEHA QUEZADA (MEKHI) Unavailable Unavaila CHUCK Nagy Unavailable Unavailable SNEHA QUEZADA (MEKHI) Unavailable Unavaila ble SNEHA QUEZADA (MEKHI) Unavailable Unavaila ble Problems Active Problems Problem Classification Problem Date Documented Date Episodic/Chronic Mood disorders (1 source) Mood disorders Onset: 12-03-2016 Osteoarthritis (1 source) Bilateral primary osteoarthritis of knee; Translations: [Bilateral primary osteoarthritis of knee] Onset: 03-21-2018 Chronic Residual codes; unclassified (1 source) Pain, unspecified; Translations: [Pain, unspecified] Onset: 03-21-2018 Unclassified (2 sources) Abrasion, right lower leg, initial encounter / S80.811A(ICD-9) Onset: 12-03-2016 Unclassified (1 source) Tobacco use / Z72.0(ICD-9) Onset: 12-03-2016 Past or Other Problems Problem Classification Problem Date Documented Da te Episodic/Chronic Unclassified (1 source) Abrasion, right lower leg, initial encounter; Translations: [Abrasion, right lower leg, initial encounter] Onset: 12-03-2016 Results Test Name Value Interpretation Reference Range Facil ity Encounters Encounter Date Encounter Type Care Provider Facility Start: 03-30-2018 End: 04-02-2018 Patient encounter procedure SNEHA PUGH) [facility] Start: 03-21-2018 End: 04-02-2018 [facility]: 12-03-2016 End: 12-03-2016 Emergency department patient visit BASIA LOBO Facility:[facility] Payers Date Payer Category Payer Policy ID Unknown [id number] Summary Purpose Family History No Family History Records FoundNo Family History Records Found Advance Directives No Advanced Directives Records FoundNo Advanced Directives Records Found Additional Source Comments INFORMATION SOURCE (unrecogn ized section and content) DATE CREATED AUTHOR AUTHOR'S CLARISSA LASHAYWILLOW 04/16/2018 [facility] FOR RECORDS PERTAINING TO PATIENTS WHO ARE OR HAVE BEEN ENROLLED IN A CHEMICAL DEPENDENCY/SUBSTANCEABUSE PROGRAM, SOME INFORMATION MAY BE OMITTED. This clinical summary was aggregated from multiple sources. Caution should be exercised in using it in the provision of clinical care. This summary normalizes information from multiple sources, and as a consequence, information in this document may materially change the coding, format and clinical context of patient data. In addition, data may be omitted in some cases. CLINICAL DECISIONS SHOULD BE BASED ON THE PRIMARY CLINICAL RECORDS. [facility]. provides no warranty or guarantee of the accuracy or completeness of information in this document.
[2023-06-09 08:23] VITALS: BP 160/80; PULSE 62; RESP 16; O2SAT 99
== END 2023-06-09 08:28 | disposition home or self-care (01) ==
PROVIDERS: Emergency Provider Emergency Medicine; Visit Provider Emergency Medicine
DX: S16.1XXA Strain of muscle, fascia and tendon at neck level, initial encounter (principal); M62.838 Other muscle spasm; F17.290 Nicotine dependence, other tobacco product, uncomplicated; X58.XXXA Exposure to other specified factors, initial encounter; Y93.89 Activity, other specified; Y92.89 Other specified places as the place of occurrence of the external cause
CPT/HCPCS: 72040; 96372; 99282

== ENCOUNTER 2024-04-08 20:10 | Emergency (ER) | payer BC, SELFPAY ==
[2024-04-08 20:11] VITALS: BP 175/139; PULSE 99; RESP 20; TEMP 36.5; O2SAT 93; BMI 55.5
--- NOTE | 2024-04-08 20:25 | EDS_ITS ---
HPI History of Present Illness HPI Narrative: Patient presents for left wrist injury occurred tonight. Patient states she fell 1 step off of the bleachers. Patient is right-hand dominant. Patient put her left hand out to catch her fall. Patient noted deformity immediately. Patient admits to some tingling into her fingers. Patient describes her pain as burning. Patient states nothing seems to help with the pain. Patient states her pain is worse with any movement. Patient denies any weakness. Patient denies any head injury or loss of consciousness. 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 Home Medications ?Medication ?Instructions ?Recorded ?Last Taken ?Type alprazolam 0.5 mg tablet 0.5 mg PO DAILY PRN PRN Anxiety 06/26/20 Unknown History fluoxetine 10 mg capsule (Prozac) 20 mg PO DAILY 12/23/20 Unknown History metaxalone 800 mg tablet 800 mg PO TID 7 days #21 tabs 06/09/23 Unknown Rx oxycodone-acetaminophen 5 mg-325 1 tab PO Q6H PRN PRN Pain 3 days 04/08/24 Unknown Rx mg tablet #12 TABLETS Allergy/AdvReac Type Severity Reaction Status Date / Time hydrocodone (From Vicodin) AdvReac Nausea Verified 04/08/24 20:17 Surgical History H/O neck surgery H/O lumbosacral spine surgery Social History household members: spouse, children and other details: brother housing: house Smoking Status: Current every day smoker tobacco type: e-cigarettes Tobacco: How many years used: 20 alcohol intake: never what type of physical activity do you participate in: none do you feel safe at home: Yes ROS ROS ED Constitutional Constitutional ED: Denies chills or fever(s) Eyes Eyes: Denies blurry vision or change in vision ENT ENT ED: Denies rhinorrhea or sore throat Cardiovascular Cardiovascular: Denies chest pain or palpitations Respiratory/Chest Respiratory/Chest: Denies cough or dyspnea Gastrointestinal Gastrointestinal: Denies nausea or vomiting Genitourinary Genitourinary ED: Denies dysuria or hematuria Musculoskeletal Musculoskeletal: Denies back pain or neck pain Integumentary Denies abscess or rash Neurologic Neurologic: Denies headache(s) or weakness Allergic/Immunologic Allergic/Immunologic ED: Denies mouth swelling or urticaria EXAM Physical Exam Const Vital Signs: 04/08/24 20:11 04/08/24 20:15 Temperature 97.7 F L Temperature Source Oral Pulse Rate 99 Respiratory Rate 20 H Blood Pressure 175/139 H Blood Pressure Mean 151 Pulse Ox 93 Oxygen Delivery Method Room Air Positive well nourished and well developed General Appearance ED: well developed and NAD HEENT Reports moist mucous membranes normocephalic Neck full ROM and supple Extremity Extremity Narrative: There is an obvious deformity of the left distal forearm and wrist. Range of motion was limited in all motions of the left wrist secondary to pain. Sensation was intact to light touch in the radial, median, and ulnar areas. Strength is 5/5 in the radial, median, and ulnar areas. Radial pulses are equal bilaterally. Neuro oriented x3, CN's II-XII intact bilaterally, moves all extremities, no focal motor deficits and no sensory deficits noted Sensorium / Orientation: alert Motor Exam: strength 5/5 throughout MDM MDM MDM Narrative Medical decision making narrative: Differential diagnosis includes fracture and dislocation. X-rays of the left wrist and left forearm will be obtained to assess for fracture or dislocation. Radiography Diagnostic Testing: X-rays of the left wrist were obtained. There are 3 views. On my independent interpretation, there there is a comminuted fracture of the distal radius with dorsal angulation of the distal fragment. There is also an ulnar styloid fracture. Radiologist also interpreted the x-rays and agrees. X-rays of the left forearm were obtained. There are 2 views. On my independent interpretation, there is a comminuted fracture of the distal radius with dorsal angulation of the distal fragment. There is no proximal radius or ulnar fracture. Radiologist also interpreted the x-rays and agrees. Postreduction x-rays of the left wrist were obtained. There are 3 views. On my independent interpretation, there is improved alignment of the fracture fragments. There is still shortening of the radius. Radiologist also interpreted the x-rays and agrees. Treatment and Re-Evaluation Narrative: Patient was given morphine and Zofran initially. Patient was given repeat doses of Dilaudid. Patient was advised of the need for sedation and reduction. Patient is agreeable with this. Patient and spouse were given the opportunity ask any further questions. They had no further questions. Patient was placed on continuous cardiac and pulse oximeter monitors. Patient was given a total dose of 280 mg of propofol. After adequate sedation, the fracture was reduced using traction countertraction. Finger traps were also used to maintain traction. A well-padded custom made sugar-tong splint was applied. Neurovascular exam was intact before and after application of the splint. Patient tolerated the procedure well. There are no hypoxic episodes. Case was discussed with Dr. Olmstead from orthopedics. He will follow-up with the patient in his office. Patient was instructed to ice and elevate the left wrist. Patient was given a prescription for Percocet. Patient was instructed to return if worse in any way. Patient understood and was agreeable with the plan. All questions were answered. Procedures Upper Extremity Splints Upper Extremity Splint: Orthoglass and Long arm (Sugar-tong) Splint Fabrication: Fabricated Location: Left Procedural Sedation 1 (Initial Baseline): Consent Signed: Yes Any Problems With Anesthesia: No You/Your family experience fever (hyperthermia) w/anesthesia: No Sedation medication: Propofol Dose: 280 Route: IV Maliampati Score: Class II ASA Classification: I Discharge Plan Triage Chief Complaint: Fall ED Provider: Jamshid Parham Dx/Rx/DC Orders Clinical Impression: Closed fracture of left distal radius and ulna, Fall Instructions: ED Fracture, Wrist, General Prescriptions: New oxycodone-acetaminophen 5-325 mg tablet 1 tab PO Q6H PRN PRN (Reason: Pain) 3 Days Qty: 12 0RF No Action fluoxetine [Prozac] 10 mg capsule 20 mg PO DAILY alprazolam 0.5 MG tablet 0.5 mg PO DAILY PRN PRN (Reason: Anxiety) metaxalone 800 mg tablet 800 mg PO TID 7 Days Qty: 21 0RF Primary Care Provider: Care Physician,No Primary Referrals: Geoff Olmstead MD [Med Staff - Active Staff] - 3-5 Days Care Physician,No Primary [Primary Care Provider] - Print Language: Anguillan Disposition Disposition: Home, Self Care
[2024-04-08] MEDS: Morphine 4 MG/ML Syringe IM (20:40)
[2024-04-08] MEDS: Ondansetron 4 MG/2 ML Vial IV (20:40)
--- NOTE | 2024-04-08 21:00 | RAD_ITS ---
STUDY: X-RAY - LEFT WRIST REASON FOR EXAM: Female, 48 years old. Injury/Pain TECHNIQUE: 3 view(s) of the wrist were obtained. COMPARISON: None. FINDINGS: Acute impacted comminuted intra-articular fracture of the distal radius with volar displacement of the proximal fracture fragment. There is also displaced fracture of the ulnar styloid process in association with ulnocarpal dislocation with volar medial displacement of the distal ulna.. Normal carpal bones. Normal carpal articulations. Normal carpometacarpal articulation of the thumb. Normal second through fifth carpometacarpal articulations. Normal visualized metacarpal bones. Diffuse soft tissue swelling of the distal forearm and wrist RAD/Wrist min 3 Views IMPRESSION: Acute displaced fractures of distal radius and ulna Electronically Signed: Kwabena Henning MD at 21:58 EST ,
--- NOTE | 2024-04-08 21:00 | RAD_ITS ---
STUDY: X-RAY - LEFT RADIUS AND ULNA REASON FOR EXAM: Female, 48 years old. Injury/Pain TECHNIQUE: 2 view(s) of the forearm. COMPARISON: None. FINDINGS: There is soft tissue swelling of the distal forearm There is an acute impacted comminuted intra-articular fracture of the distal radius with volar displacement of the proximal fracture fragment. There is a displaced fracture of the ulnar styloid process There is also ulnocarpal dislocation with overlapping and volar medial displacement of the proximal fragment . RAD/Forearm 2 Views IMPRESSION: Acute fractures and dislocation of the radius and ulna Electronically Signed: Kwabena Henning MD at 21:55 EST ,
[2024-04-08] MEDS: HYDROmorphone 1 MG/ML Syringe 0.5 MG IV (21:15)
[2024-04-08] MEDS: Propofol 200 MG/20 ML Vial IV BOLUS (21:16)
[2024-04-08 22:08] VITALS: BP 127/75; BP 128/74; BP 142/87; BP 142/93; BP 144/86; PULSE 107; PULSE 82; PULSE 86; PULSE 87; PULSE 90; PULSE 91; RESP 14; RESP 16; RESP 18; RESP 20; TEMP 36.7; O2SAT 91; O2SAT 92; O2SAT 93; O2SAT 94; O2SAT 96
[2024-04-08 22:25] VITALS: BP 142/93; O2SAT 96
[2024-04-08 22:30] VITALS: BP 114/70; O2SAT 96
[2024-04-08 22:35] VITALS: BP 121/65; O2SAT 96
--- NOTE | 2024-04-08 22:35 | RAD_ITS ---
EXAM: XR Wrist Min 3 Views INDICATION: Female, 48 years old. Left wrist fracture TECHNIQUE: AP, lateral, and oblique views COMPARISON: None FINDINGS: BONES: There is been interval closed reduction and casting of a comminuted, impacted fracture deformity of the distal radial metaphysis with mild residual dorsal displacement and angulation of the largest distal fracture fragment. There is contrast in the fracture lines into the radial scaphoid and radial carpal joints. There is a small avulsion fracture fragment off the ulnar styloid process. There is no lytic or blastic lesion.. JOINTS: Joints are in normal alignment. There is mild widening of the scapholunate joint. There is mild degenerative change of the first carpometacarpal, triscaphe the end radial scaphoid joints. No periarticular inflammatory change. SOFT TISSUES: Soft tissue swelling surrounds the wrist RAD/Wrist min 3 Views IMPRESSION: Interval closed reduction and casting of a comminuted, impacted, intra-articular fracture deformity of the distal left radial metaphysis and ulnar styloid process. Electronically Signed: Jarek Rice MD at 0:30 EST ,
[2024-04-08] MEDS: HYDROmorphone 0.5 MG/0.5 ML SYRINGE IV (22:49)
[2024-04-08 22:51] VITALS: BP 151/82; PULSE 87; RESP 18; O2SAT 93
[2024-04-09 00:22] VITALS: BP 155/78; PULSE 82; RESP 18; TEMP 36.7; O2SAT 98
== END 2024-04-09 01:06 | disposition home or self-care (01) ==
PROVIDERS: Emergency Provider Emergency Medicine; Visit Provider Emergency Medicine
DX: S52.502A Unspecified fracture of the lower end of left radius, initial encounter for closed fracture (principal); W10.9XXA Fall (on) (from) unspecified stairs and steps, initial encounter; F17.290 Nicotine dependence, other tobacco product, uncomplicated; S52.602A Unspecified fracture of lower end of left ulna, initial encounter for closed fracture
CPT/HCPCS: 25605; 29125; 73090; 73110; 96372; 96374; 96375; 96376; 99152; 99153; 99285; A4216; J2405

== ENCOUNTER 2024-05-31 10:30 | Outpatient (RCR) | payer BC, SELFPAY ==
--- NOTE | 2024-05-02 16:26 | HP.OTEVAL_ITS ---
Patient's Visit Information Visit Information Visit Information: HESHAM TIJERINA is a 48 year old F, referred to Occupational Therapy by Dr. Stephanie Guadarrama MD, with a diagnosis of Intartic fracture of lower end of L radius. Date of Evaluation: 05/02/24 Occupational Therapist: Alma Do Subjective Subjective: This 48 year old female arrives with dx of L distal radius fracture. pt with fall 04/08/24 went to emergency room x ray reveals fx of distal radius as well as ulnar fx. pt states broken bones within wrist as well. Per pt went to orthopedics and had surgery 04/12/24 ORIF plate and 9 screws. pt went for follow up appointment 04/25/24 when pt was placed in wrist brace. pt is now 2 weeks and 5 days since surgery. pt is R hand dominant. 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 Pain L wrist: Current Pain Intensity: 10 Objective Objective/Observation: pt arrives with orthosis to L hand as well as sling-- told to wear sling while in public ROM Wrist: L 15/20 R 60/50 MP: L 0/35 IP: L 0/18 Opposition: unable MP: L IF 0/50 MF 0/42 RF 0/40 LF 0/30 ROM Comments: L forearm supination 10 R forearm supination full range Strength Strength Comments: unable to assess at eval to measure at later date once able Edema Wrist: L 20.5 cm R 18 cm PIP: L 8cm R 7.5 cm Proximal Phalanx: L 20.5 cm R 20.5 cm Sensation Sensation Comments: RF and LF tingling 3.61 diminished light touch Quick DASH-Disab of Arm,Shoulder& Hand Quick DASH Score: 97.7250 Goals Goal:: pt will demo improved L UE ceramic artist strength equal to or greater than non affected side (once able) in order to perform day to day tasks pt will demo improved L UE lateral and tripod pinch strength equal to or greater than non affected side (once able) in order to perform day to day tasks Goal:: pt will demonstrate forearm supination equal to non affected UE in order to return to day to day tasks pt will demonstrate wrist ext/flex equal to non affected UE in order to return to day to day tasks pt will improve digit ROM in order to make composite fist in order to return to PLOF Goal:: Pt will decrease pain in L wrist to 2/10 or less during functional tasks in order to return to PLOF Goal:: pt will decrease swelling of LUE equal to non affected UE to improve ROM Goal:: pt will demo 100% accuracy in proper joint protection and positioning Goal:: pt will improve quick dash score by 20 points or more in order to return to functional use of LUE Rehabilitation General Assessment: This 48 year old female arrives with dx of intartic fracture of L radius demonstrating impairments in forearm, wrist as well as digit ROM, increased pain as well as swelling and decreased functional use of L UE. pt would benefit from OT services 2-3x a week for 6 weeks in order to address above concerns. Rehabilitation Potential: Good Anticipated Interventions Anticipated Interventions: A/AAROM/PROM, Strengthening, Edema Control, Triggerpoint Release, Modalities, Orthoses, Joint Protection/Energy Conservation, Education re Diagnosis and Home Program Visit Plan Frequency: 2-3x /Week Duration: 6 Weeks General Plan: AROM/AAROM/PROM edema management pain management strengthening once able TEXT: Thank you for the opportunity to evaluate your patient. For Medicare and Medicare HMO plans, please review the plan of care and approve it. It will need to be FAXED BACK to us at [phone] for Medicare purposes. Please let me know if there are questions or concerns regarding this plan of care. Physician Signature: Date:
--- NOTE | 2024-05-31 11:28 | HP.OTDCSUM_ITS ---
Discharge Summary D/C Summary: It has been my pleasure to treat HESHAM TIJERINA under orders from Dr. Stephanie Guadarrama MD, for the diagnosis of Intartic fracture of lower end of L radius for a total of 9 visit(s). Please see the following information for a summary of their discharge status. Overall Improvement % Improvement: 50 Objective Objective/Function: left UD 15* RD 15* left wrist 30/30 pt demo the ability to form a light composite fist left MF PIP 7.2 right is 7.0 swelling has come down and pt continues to wear a compression glove left wrist 19cm right 17cm pt is only wearing her wrist splint only as needed. pt demo with a left personnel research scientist strength of 5# pt will continue to work on this left lateral pinch 5 # improved from 0# pt using tens unit as needed pt is using hand as much as she can with daily tasks as dressing/ eating/ and light cleaning. Goals Patient Goals: Regain Strength, Decrease Pain, Decrease Swelling/Stiffness, Use Hand/Wrist/Arm Normally Again, Increase ROM, Be More Independent in ADLS, Resume Former Household Responsibilities (Cooking,Cleaning,Yard, etc.) and Resume Hobbies Goal:: pt will demo improved L UE personnel research scientist strength equal to or greater than non affected side (once able) in order to perform day to day tasks (progressing will cont with HEP) pt will demo improved L UE lateral and tripod pinch strength equal to or greater than non affected side (once able) in order to perform day to day tasks ( progressing pt to cont. PRE HEP) Goal:: pt will demonstrate forearm supination equal to non affected UE in order to return to day to day tasks (progressing pt will demonstrate wrist ext/flex equal to non affected UE in order to return to day to day tasks pt will improve digit ROM in order to make composite fist in order to return to PLOF (progressing) Goal:: Pt will decrease pain in L wrist to 2/10 or less during functional tasks in order to return to PLOF Goal:: pt will decrease swelling of LUE equal to non affected UE to improve ROM ( progressing) Goal:: pt will demo 100% accuracy in proper joint protection and positioning (goal met) Goal:: pt will improve quick dash score by 20 points or more in order to return to functional use of LUE Plan Plan: D/C D/C Information Discharge Comments: pt was seen for d/c sentence: If there are questions or concerns regarding this patient's occupational therapy, please fell free to call me at [phone]. Thank you for the referral of this patient. Sincerely, Maddie Oseguera, OTR/L, CHT
== END 2024-05-31 19:00 | disposition home or self-care (01) ==
LOC: OT 10:30
PROVIDERS: Referring Provider Orthopaedic Surgery Hand Surgery; Visit Provider Orthopaedic Surgery Hand Surgery
DX: S52.572D Other intraarticular fracture of lower end of left radius, subsequent encounter for closed fracture with routine healing (principal)
CPT/HCPCS: 97110; 97140; 97166; 97530